=== PATIENT | male | born 1960 | race Caucasian/White ===

== ENCOUNTER 2022-11-01 05:46 | Day surgery (SDC) | payer MEDICARE ==
[2022-11-01] MEDS ORDERED: Lactated Ringers 1,000 ML IV SCH (06:30)
[2022-11-01] MEDS ORDERED: Xylocaine-Mpf 2% 5 Ml Vial ONE (06:42)
[2022-11-01] MEDS ORDERED: DIPRIVAN 200 MG/20 ML IV ONE (06:42)
[2022-11-01] MEDS ORDERED: Versed 2 MG/2 ML Injection ONE (06:51)
[2022-11-01 08:22] VITALS: O2SAT 100
[2022-11-01 08:43] VITALS: BP 159/79; PULSE 74
--- NOTE | 2022-11-01 08:43 | OP ---
SURGERY DATE/TIME: 11/01/2022 0715 PREOPERATIVE DIAGNOSIS: Screening colonoscopy. POSTOPERATIVE DIAGNOSIS: Sigmoid colon polyp. PROCEDURE: Colonoscopy. SURGEON: Johny De La Garza M.D. ANESTHESIA: MAC by Geovani Killian CRNA. ESTIMATED BLOOD LOSS: Minimal. SPECIMENS: Hot forceps polypectomy to the sigmoid colon. DESCRIPTION OF PROCEDURE: After informed written consent was obtained, the patient was taken to the endoscopy suite. He was placed in left lateral decubitus position. Anesthesia was titrated to desired level of consciousness. Digital rectal exam showed normal sphincter tone and no internal lesions. The scope was inserted into the rectum and sequentially the entire colonic mucosa was traversed. The level of cecum was reached and verified with direct visualization of the ileocecal valve. Upon withdrawal careful mucosal inspection showed no gross abnormalities. Prep was noted to be fair to poor due to liquid stool. There was a small sessile polyp in the sigmoid colon this was grasped with forceps, cauterized, removed in its entirety and sent to pathology. There was no bleeding following removal. The remainder of the exam was unremarkable. Retroflexion showed no internal lesions. The scope was removed. The patient was transferred to the recovery room in good condition. He is instructed to follow up in a week for pathology.
== END 2022-11-01 09:00 | disposition home or self-care (01) ==
LOC: SDC 05:46
PROVIDERS: ATTEND Family Medicine
DX: Z12.11 Encounter for screening for malignant neoplasm of colon (principal); K63.5 Polyp of colon
CPT/HCPCS: J2250; J2704